=== PATIENT | female | born 1950 | race Caucasian/White ===

== ENCOUNTER → 2023-02-07 | Outpatient (CLI) | payer MEDICARE | END | disposition home or self-care (01) | LOC: MRI 00:54 | PROVIDERS: ATTEND Podiatrist Foot & Ankle Surgery | DX: S92.151A Displaced avulsion fracture (chip fracture) of right talus, initial encounter for closed fracture (principal); M19.071 Primary osteoarthritis, right ankle and foot; M72.2 Plantar fascial fibromatosis; R60.9 Edema, unspecified; M62.571 Muscle wasting and atrophy, not elsewhere classified, right ankle and foot; X58.XXXA Exposure to other specified factors, initial encounter; Y93.89 Activity, other specified; Y92.89 Other specified places as the place of occurrence of the external cause; Y99.8 Other external cause status ==